=== PATIENT | male | born 1935 | race Caucasian/White ===

== ENCOUNTER → 2017-01-07 | Outpatient (CLI) | payer MEDICARE, OTHER ==
[~2017-01-07] MED LIST: ASPI-345; CAPT100T2 PO; FURO40TA4 PO; GARL1CAP7 PO; HYDR-2013 PO; HYDR-3702 PO; HYDR-3811 PO; INDO50CA PO; METF500T4 PO; METO-270 PO; MULT-35 PO; NAPR375T5 PO; OMEP20CA6 PO; SIMV20TA PO; SIMV80TA3 PO; SPIR1TAB PO; TAMS0.4C2 PO; WRF5T PO; [UNRECOGNIZED DRUG - REMARK]; [UNRECOGNIZED DRUG - REMARK]; [UNRECOGNIZED DRUG - REMARK]; metformin
--- NOTE | 2017-01-07 13:39 | Diagnostic Imaging Report ---
PROCEDURE: CT abdomen and pelvis without contrast. TECHNIQUE: Multiple contiguous axial images were obtained through the abdomen and pelvis without the use of intravenous contrast. INDICATION: Microscopic hematuria with one year's history of dysuria. COMPARISON: 08/28/2014. FINDINGS: Intrarenal stone burden bilaterally left greater than right is a redemonstrated finding. The largest calculus on the left measures a long axis of 8.5 mm, previously 9 mm unchanged. There is a stone in the right lower pole calyx measuring about 4 mm unchanged. There is no hydronephrosis. No perinephric or periureteric edema. No opaque ureteral stone. There are areas of diverticula off the urinary bladder with no focal bladder wall thickening. Heterogeneous nodular prostatomegaly and density at the urinary bladder base in an unchanged fashion. There is severe sigmoid diverticulosis. There is some mild chronic induration of the perisigmoidal fat likely scarring from previous inflammatory episodes. There are no findings of acute diverticulitis. Likely a very large dominant diverticulum ventral and superior off the proximal third of the sigmoid noted unchanged. There is no free intraperitoneal air or pneumatosis. No evidence of abscess. There are multiple aortoiliac vascular stents with stent deformation at and near the aortic bifurcation unchanged. There is no ascites, abscess, hematoma, or other fluid collection. The unopacified liver is unremarkable. There is no adrenal mass. The spleen is negative. The pancreas is negative. IMPRESSION: Bilateral nephrolithiasis stable nonobstructing. No ureteral calculi. Urinary bladder diverticula, bladder otherwise unremarkable. No acute inflammatory process. Severe chronic diverticulosis of the sigmoid unchanged. Aortoiliac atherosclerotic disease with multiple stents in unchanged alignment some of which show areas of flattening and deformation also unchanged. An acute-appearing abnormality is not identified. Unchanged heterogeneous nodular prostatomegaly. Dictated by: Dictated on workstation # [id number]
== END ==
LOC: RAD 08:18
PROVIDERS: ATTEND Urology
DX: R31.29 Other microscopic hematuria (principal)
CPT/HCPCS: 74176